=== PATIENT | male | born 2005 | race Two or more races ===

== ENCOUNTER 2024-06-08 11:08 | Emergency (ER) | payer OTHER ==
[~2024-06-08] VITALS: Ht 167.6 cm; Wt 113.4 kg
[2024-06-08] MEDS ORDERED: BACTRIM DS TAB1 EACH PO (12:00)
[2024-06-08] MEDS ORDERED: LODINE300 MG (12:00)
[2024-06-08] MEDS ORDERED: CLEOCIN HCL300 MG PO (12:00)
[2024-06-08] MEDS ORDERED: KETOROLAC TROMETHAMINE 60 MG VIAL IM STA (12:46)
[2024-06-08] MEDS ORDERED: CEFTRIAXONE SODIUM 2,000 MG in 0.9 % SODIUM CHLORIDE 100 ML IV SCH (12:46)
[2024-06-08] MEDS ORDERED: LIDOCAINE HCL 1% 10ML VIAL ONE (12:50)
[2024-06-08] MEDS ORDERED: KETOROLAC TROMETHAMINE 60 MG VIAL IM ONE (13:31)
[2024-06-08] MEDS ORDERED: CEFTRIAXONE SODIUM 2,000 MG VIAL ONE (13:31)
== END 2024-06-08 13:46 | disposition home or self-care (01) ==
LOC: ER 11:11
DX: L05.01 Pilonidal cyst with abscess (principal)